=== PATIENT | female | born 1995 | race Caucasian/White ===

== ENCOUNTER 2021-11-17 | Emergency (ER) | payer OTHER ==
[~2021-11-17] MED LIST: CLARITIN10 MG PO; FLONASE 0.05% N16 GM; GLUCOPHAGE500 MG PO; NORCO 5-325 TA1 EACH PO; PRENATAL VITAM1 EAC3 PO; TYLENOL 325MG325 MG PO
[2021-11-17 00:45] LABS: HEMOGLOBIN 12.5 gm/dl (12.3-15.3); RED BLOOD COUNT 4.67 M/UL (4.00-5.10); WHITE BLOOD COUNT 12.3 K/UL (4.5-11.0)
[2021-11-17 01:08] LABS: BUN/CREATININE RATIO 17 (0-10)
== END 2021-11-17 03:09 | disposition home or self-care (01) ==
LOC: ER1
PROVIDERS: Family Medicine
DX: R07.89 Other chest pain (principal); Z88.0 Allergy status to penicillin; Z88.1 Allergy status to other antibiotic agents
CPT/HCPCS: 71045; 80048; 82550; 82553; 84439; 84443; 84484; 84703; 85025; 93005; 99285

== ENCOUNTER 2022-02-25 19:34 | Emergency (ER) | payer OTHER ==
[2022-02-25 20:09] LABS: HEMOGLOBIN 12.3 gm/dl (12.3-15.3); RED BLOOD COUNT 4.52 M/UL (4.00-5.10); WHITE BLOOD COUNT 10.9 K/UL (4.5-11.0)
[2022-02-25 20:30] LABS: BUN/CREATININE RATIO 9 (0-10)
== END 2022-02-25 23:11 | disposition home or self-care (01) ==
LOC: ER1
PROVIDERS: Emergency Medicine
DX: R07.89 Other chest pain (principal); Z88.0 Allergy status to penicillin; Z88.1 Allergy status to other antibiotic agents; Z20.822 Contact with and (suspected) exposure to COVID-19
CPT/HCPCS: 0241U; 71045; 80053; 80307; 81001; 82550; 82553; 83735; 83880; 84484; 84703; 85025; 85379; 93005; 99285

== ENCOUNTER 2022-02-27 13:24 | Emergency (ER) | payer OTHER ==
[2022-02-27 14:37] LABS: HEMOGLOBIN 13.5 gm/dl (12.3-15.3); RED BLOOD COUNT 4.96 M/UL (4.00-5.10); WHITE BLOOD COUNT 9.8 K/UL (4.5-11.0)
[2022-02-27 15:00] LABS: BUN/CREATININE RATIO 11 (0-10)
== END 2022-02-27 20:35 | disposition home or self-care (01) ==
LOC: ER1 13:24
PROVIDERS: Emergency Medicine
DX: R29.810 Facial weakness (principal); Z88.0 Allergy status to penicillin
CPT/HCPCS: 70450; 71045; 80053; 82550; 82553; 84484; 85025; 93005; 99284

== ENCOUNTER → 2022-03-05 | Outpatient (CLI) | payer OTHER | LOC: HEART 5 11:19 | DX: R07.9 Chest pain, unspecified (principal); R94.31 Abnormal electrocardiogram [ECG] [EKG]; R00.2 Palpitations ==